=== PATIENT | male | born 1995 | race Caucasian/White ===

== ENCOUNTER 2022-12-29 17:12 | Emergency (ER) | payer OTHER, SELFPAY ==
--- NOTE | ~2022-12-29 | XR_ITS ---
EXAM: XR hand RT min 3V DATE: 12/29/2022 18:07 HISTORY: FELL FORWARD IN [place] 12/28/22. PAIN RT. HAND. . COMPARISON: None available. FINDINGS: Normal mineralization. No fracture or dislocation. No lytic or blastic lesion. Joint space s are maintained. No erosion or periosteal change. Soft tissues within normal limits. IMPRESSION: No acute osseous finding in the right hand. Reviewed, dictated and finalized at location [facility] [employer]
[2022-12-29 17:30] VITALS: BP 134/86; PULSE 71; RESP 20; TEMP 36.8; O2SAT 100
--- NOTE | 2022-12-29 17:54 | ED.GENADULT ---
HPI - General Adult General Chief complaint: Fall Stated complaint: fall Source: patient Mode of arrival: ambulatory Limitations: no limitations History of Present Illness HPI narrative: Patient presents for evaluation after sustaining a fall yesterday. He was on a hike when he tripped and landed with his hands outstretched. He did hit his head. No loss of consciousness. Not on blood thinners. No vomiting since the episode. Reports abrasions to the bilateral hands, left parietal aspect of his scalp, left shoulder and left hip. Reports 6/10 pain in the DIP joint of the 5th digit of the right hand. No loss of range of motion. No paresthesias. He is right-hand dominant. Reports 3/10 pain in the areas in which he has other abrasions. He is up-to-date on vaccinations. He cleaned his abrasions with soap and water. He denies other complaints. Related Data Home Medications Medication Instructions Recorded Confirmed sertraline 150 mg capsule 150 mg PO DAILY 12/29/22 12/29/22 Allergies Allergy/AdvReac Type Severity Reaction Status Date / Time Sulfa (Sulfonamide Allergy Anaphylactic Verified 12/29/22 17:36 Antibiotics) Shock Review of Systems Review of Systems: CONSTITUTIONAL: Denies fever, chills, or sweats. EYES: Denies visual changes, redness, or discharge. ENT: Denies rhinorrhea, congestion, sore throat, or otalgia. CARDIOVASCULAR: Denies chest pain, palpitations, or edema. RESPIRATORY: Denies cough or dyspnea. GASTROINTESTINAL: Denies abdominal pain, nausea, vomiting, or diarrhea. GENITOURINARY: Denies dysuria or hematuria. SKIN: Reports abrasions to bilateral hands, left shoulder, left side of his scalp, left hip MUSCULOSKELETAL: Reports pain in bilateral hands, left shoulder, left hip, and left side of the scalp NEUROLOGIC: Denies headache, numbness, dizziness, or weakness. PSYCHIATRIC: Denies anxiety or depression. [facility] Past Medical History Medical History (Updated 12/29/22 @ 18:23 by Fady Strickland, CAT[place], ) No pertinent past medical history Surgical History Surgical History No pertinent past surgical history Family History Family History Mother Family history non-contributory Social History Social History Smoking status: Never smoker Substance use: never Occupation/Education: student Gender identity (if verbalized by the patient): Male Spiritual care concerns: No Exam Narrative: GENERAL: Well-appearing, well-nourished, and in no acute distress. HEAD: Normocephalic EYES: PERRLA and EOMI. ENT: Nares clear, no rhinorrhea or epistaxis. Mucous membranes moist. Oropharynx without tonsillar hypertrophy exudate or other lesions. Bilateral TMs pearly pendleton nonbulging NECK: Supple. No adenopathy or masses. No carotid bruits or JVD CHEST: Clear to auscultation. No respiratory distress. No wheezes rales or rhonchi HEART: Regular rate and rhythm. No murmur heard. Normal peripheral pulses. ABDOMEN: Soft, nontender, nondistended, normal active bowel sounds. EXTREMITIES: Tenderness noted to the DIP joint of 5th digit left hand. There is some soft tissue swelling noted to distal phalanx of fifth digit of right hand. 5/5 hand trackless trolley driver strength bilaterally. Full range of motion of all joints. SKIN: Superficial abrasions noted to the dorsal and palmar aspects of both hands. There is a linear abrasion noted to the left parietal/temporal region of the scalp. There is superficial abrasions to left shoulder and left hip. NEURO: Normal [id number] exam. Able to perform rapid alternating movements without difficulty. No focal deficits. Alert and oriented x3. PSYCH: Normal mood and affect. Course Course Emergency Course: This is a 27-year-old male who presented for evaluation of injuries he sustained yesterday wh
== END 2022-12-29 18:30 | disposition home or self-care (01) ==
PROVIDERS: Emergency Provider Nurse Practitioner; PCP Emergency Medicine
DX: S60.051A Contusion of right little finger without damage to nail, initial encounter (principal); W19.XXXA Unspecified fall, initial encounter; Y93.01 Activity, walking, marching and hiking; S60.512A Abrasion of left hand, initial encounter; S60.511A Abrasion of right hand, initial encounter; S00.01XA Abrasion of scalp, initial encounter; S40.212A Abrasion of left shoulder, initial encounter; S70.212A Abrasion, left hip, initial encounter
CPT/HCPCS: 73130; 99213; G0463